=== PATIENT | male | born 1955 | race Caucasian/White ===

== ENCOUNTER → 2020-06-14 | Outpatient (CLI) | payer BC ==
--- NOTE | 2020-06-14 08:12 | MR ---
EXAMINATION TYPE: MR knee RT wo con DATE OF EXAM: 06/14/2020 COMPARISON: Right knee x-ray November 19, 2019 HISTORY: Rt knee pain. Outer pain extending anteriorly for 6 months per patient. TECHNIQUE: Multiplanar, multisequence images of the knee is performed without IV contrast. FINDINGS: MEDIAL MENISCUS: Medial extrusion of medial meniscus on coronal images. Anterior horn is intact witho ut tear. Oblique increased signal posterior horn extends to the central body and articular surface. LATERAL MENISCUS: Anterior and posterior horns are intact without tear. CRUCIATE LIGAMENTS: The anterior and posterior cruciate ligaments are intact and unremarkable. COLLATERAL LIGAMENTS: The medial collateral ligament and lateral collateral ligament complex are inta ct and unremarkable. EXTENSOR MECHANISM: Visualized quadriceps and patellar tendons are intact. EFFUSION: No significant suprapatellar joint effusion. POPLITEAL CYST: No popliteal/noble cyst. TRICOMPARTMENT SPACES: Mild tricompartment joint space loss and spurring. CARTILAGE: Tricompartment articular cartilage fairly well preserved. BONE MARROW SIGNAL: Small focus of osseous contusion and/or abnormal bone marrow edema centrally medi al aspect medial tibial plateau over a roughly 1.5 x 1.0 x 1.0 cm area axial image 10, sagittal image 8, and coronal image 21. OTHER: No additional significant abnormality is appreciated. IMPRESSION: 1. Full-thickness tear posterior horn medial meniscus extending into central body. 2. Mild tricompartment degenerative changes. 3. Small 1.5 cm area of osseous contusion and/or abnormal bone marrow edema central medial aspect med ial tibial plateau.
== END ==
LOC: RADMRIMAIN 07:22
PROVIDERS: ATTEND Orthopaedic Surgery
DX: S83.241A Other tear of medial meniscus, current injury, right knee, initial encounter (principal); M17.11 Unilateral primary osteoarthritis, right knee; S80.01XA Contusion of right knee, initial encounter

== ENCOUNTER → 2023-01-03 | Outpatient (CLI) | payer MEDICARE, BC ==
--- NOTE | 2023-01-03 15:02 | MR ---
EXAMINATION TYPE: MR shoulder RT wo con DATE OF EXAM: 01/03/2023 COMPARISON: Outside right shoulder x-ray April 09, 2022 HISTORY: PAIN RT SHOULDER INTO UPPER ARM for 9 months. TECHNIQUE: Multiplanar, multisequence imaging of the right shoulder is performed without contrast. FINDINGS: Rotator Cuff: Increased signal in the supraspinatus muscle and tendon. There is focal full-thickness tear measuring 7 mm AP diameter sagittal image 8 by 7 mm transversely coronal image 17 at the articul ar surface through the central portion of the distal supraspinatus tendon. Infraspinatus tendon intac t. Rotator cuff muscle bulk preserved. Subscapularis tendon has surrounding fluid. Acromioclavicular Joint: Slight superior displacement of the inferior margin distal clavicle relative to inferior margin of the acromion. There is mild to moderate capsular hypertrophy and mild spurring . There is type II downsloping acromion. Glenohumeral Joint: Moderate to large sized joint effusion. No significant spurring. Labrum: The labrum appears grossly intact given limitation of non-arthrogram study. Biceps Tendon: The long head of biceps is in normal location within bicipital groove. Bone marrow signal: No focal abnormal marrow signal is appreciated. Other: No additional significant abnormality is appreciated. IMPRESSION: 1. Tendinosis and focal full-thickness articular surface tear of portion of the supraspinatus tendon as detailed above. 2. AC joint subluxation injury along with degenerative change. Type II downsloping acromion. Correlat e for underlying impingement. 3. Moderate to large size joint effusion.
== END | disposition home or self-care (01) ==
LOC: RADMRIMAIN 13:28
PROVIDERS: ATTEND Orthopaedic Surgery
DX: M67.813 Other specified disorders of tendon, right shoulder (principal); S46.011A Strain of muscle(s) and tendon(s) of the rotator cuff of right shoulder, initial encounter; S43.111A Subluxation of right acromioclavicular joint, initial encounter; M25.411 Effusion, right shoulder; M19.011 Primary osteoarthritis, right shoulder

== ENCOUNTER → 2024-02-12 | Outpatient (CLI) | payer MEDICARE, BC ==
--- NOTE | 2024-02-13 09:50 | MR ---
EXAMINATION TYPE: MR knee RT wo con DATE OF EXAM: 02/12/2024 COMPARISON: Prior MRI right knee June 14, 2020 HISTORY: Right knee pain for 3 months. Patient denies history of prior surgery. TECHNIQUE: Multiplanar, multisequence images of the knee is performed without IV contrast. FINDINGS: MEDIAL MENISCUS: Persistent medial extrusion of medial meniscus on coronal images. Truncated appearan ce and increased signal to the posterior horn extends to articular surface and central body more prom inent from prior study. LATERAL MENISCUS: Anterior and posterior horns remain intact without tear. CRUCIATE LIGAMENTS: The anterior and posterior cruciate ligaments are intact and unremarkable. COLLATERAL LIGAMENTS: The medial collateral ligament and lateral collateral ligament complex are inta ct and unremarkable. EXTENSOR MECHANISM: Visualized quadriceps and patellar tendons are intact. EFFUSION: Small to moderate size suprapatellar joint effusion is more prominent from prior study. POPLITEAL CYST: No popliteal/noble cyst. TRICOMPARTMENT SPACES: Edematous change with thin-walled cysts in the inferior aspect of Hoffa's fat pad is new from prior study.Mild to moderate tricompartment joint space loss with minimal spurring is redemonstrated. CARTILAGE: New area of cartilaginous loss including full-thickness defect distal medial femoral condy le. BONE MARROW SIGNAL: Some heterogeneous diminished T1 and increased T2 signal involving the distal med ial femoral condyle posteriorly at site of full-thickness cartilaginous loss is noted. Similar findin gs seen in the adjacent medial tibial plateau. OTHER: New multiseptated thin-walled fluid collections along the lateral aspect of the lateral femora l condyle. IMPRESSION: 1. Interval progression of full-thickness tear now complex in appearance throughout the posterior hor n medial meniscus into the central body. 2. New [id number] sized suprapatellar joint effusion. 3. At least moderate tricompartment degenerative changes most prominent medial tibiofemoral compartme nt with interval degenerative progression from prior MRI. Significant cartilaginous loss and osseous edema is noted at this level as detailed above. 4. 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 5. New bursitis suspected along the lateral aspect of the distal lateral femoral condyle. Correlate c linically.
== END | disposition home or self-care (01) ==
LOC: RADMRIMAIN 06:06
PROVIDERS: ATTEND Family Medicine
DX: M17.11 Unilateral primary osteoarthritis, right knee (principal); S89.91XA Unspecified injury of right lower leg, initial encounter; M25.461 Effusion, right knee; M23.321 Other meniscus derangements, posterior horn of medial meniscus, right knee; R60.0 Localized edema; X58.XXXA Exposure to other specified factors, initial encounter